=== PATIENT | female | born 1940 | race Caucasian/White ===

== ENCOUNTER → 2016-12-17 | Outpatient (CLI) | payer OTHER, BC | LOC: BHFA 14:00 | PROVIDERS: ATTEND Internal Medicine Cardiovascular Disease | DX: I42.9 Cardiomyopathy, unspecified (principal); Z92.21 Personal history of antineoplastic chemotherapy ==

== ENCOUNTER → 2017-01-08 | Outpatient (CLI) | payer OTHER, BC | LOC: BHFA 14:00 | PROVIDERS: ATTEND Internal Medicine Cardiovascular Disease | DX: Z51.11 Encounter for antineoplastic chemotherapy (principal) ==

== ENCOUNTER → 2017-04-24 | Outpatient (CLI) | payer OTHER | LOC: CIMAGING 14:07 | PROVIDERS: ATTEND Family Medicine | DX: Z12.31 Encounter for screening mammogram for malignant neoplasm of breast (principal); Z85.3 Personal history of malignant neoplasm of breast | CPT/HCPCS: G0202 ==

== ENCOUNTER 2017-05-05 07:38 | Emergency (ER) | payer OTHER ==
[2017-05-05 07:49] VITALS: BP 137/98; PULSE 87; RESP 16; TEMP 97.5; O2SAT 96
--- NOTE | 2017-05-05 08:10 | EDPHY ---
H & P Time Seen by Provider: 05/05/17 07:51 HPI/ROS: This patient complains of burning throat and mouth as well as very dry feeling in her mouth. She is concerned about potential thrush. Her mouth throat symptoms been present for 1 week and have worsened over the past couple days. She reports that she has been on antibiotics for 28 days for chronic urinary tract infection that is growing Klebsiella pneumonia on cultures. She initially was treated by her primary care physician with nitrofurantoin with failure to cure her and culture subsequently showed resistance to nitrofurantoin. She was then treated with Keflex for 1 week with relief of symptoms that recurred after her the into that treatment course. She was then placed on Keflex 500 twice daily but noted to still have Klebsiella on her cultures and in consultation with a mid-level practitioner at [facility] she was started on Keflex 500 three times daily 2 days ago. She reports no urinary symptoms while on antibiotics but reports that the symptoms seem to recur her within a day or 2 of completing antibiotic course over the past month. Prior to this past month she has not had issues with chronic UTI. The patient reports slightly higher temperature for her than usual at 98.5 over the past couple days the usual temperature of 97degrees F. ROS: Constitutional: No significant fatigue. No other constitutional complaints. HEENT: She denies any nasal congestion. No ear pain. No dysphonia. Pulmonary: She has a mild dry cough over the past couple days without other associated symptoms. No pleuritic pain or dyspnea. Cardiovascular: No chest pain GI: No nausea vomiting : Currently no dysuria, frequency urgency. No kidney flank pain. Integumentary: No skin rash 7 point ROS is otherwise negative Past Medical/Surgical History: COPD Liver cancer treated with surgery and chemotherapy with care Smoking Status: Former smoker Physical Exam: Pleasant 76-year-old female appears younger than her stated age. Vital signs are normal General Appearance: Alert, no distress. Eyes: Pupils equal and round no pallor or injection. ENT, Mouth: Mucous membranes are dry. She has mild erythema to the posterior pharynx with very subtle small papules and trace amount of white material on her tongue and posterior pharynx no dysphonia. Respiratory: Mild rale at the left base clears with deep breaths. otherwise clear to auscultation bilaterally. Cardiovascular: Regular rate and rhythm. No murmur gallop or rub Gastrointestinal: Abdomen is soft and nontender, no masses, bowel sounds normal. Neurological: GCS 15 Skin: Warm and dry, no rashes. Musculoskeletal: Neck is supple nontender. Extremities are symmetrical, full range of motion. Psychiatric: Mood and affect normal DIFFERENTIAL DIAGNOSIS: After history and physical exam differential diagnosis was considered for thrush, viral pharyngitis, strep pharyngitis, chronic Klebsiella UTI, COPD Constitutional: Initial Vital Signs Temperature (C) 36.4 C 05/05/17 07:42 Heart Rate 87 05/05/17 07:42 Respiratory Rate 16 05/05/17 07:42 Blood Pressure 137/98 H 05/05/17 07:42 O2 Sat (%) 96 05/05/17 07:42 O2 Delivery Mode Room Air Allergies/Adverse Reactions: nickel Allergy (Intermediate, Verified 05/05/17 07:51) Itching adhesive Allergy (Mild, Verified 05/05/17 07:51) Rash acetaminophen [From Tylenol] Allergy (Verified 05/05/17 07:51) Other-Enter Comments codeine [Codeine] Allergy (Verified 05/05/17 07:51) GI latex Allergy (Verified 05/05/17 07:51) Hives levofloxacin Allergy (Verified 05/05/17 07:51) varicella virus vaccine live Allergy (Verified 05/05/17 07:51) IV CONTRAST DYE Allergy (Uncoded 05/05/17 07:51) SNEEZING Home Medications: Medication Instructions Recorded Fluticasone/Salmeterol [Advair Hfa 1 inh IH BID 06/10/16 115-21 Mcg Inhaler] Herbals/Supplements -Info Only 1 ea PO DAILY 06/10/16 Ramipril [Altace] 20 mg PO DAILY 06/10/16 Tamoxifen Citrate 20 mg PO DAILY 06/14/16 CEPHALEXIN 05/05/17 Nystatin Susp [Mycostatin Oral 5 ml MM QID #200 ml 05/05/17 Liquid] Pseudoephedrine HCl 05/05/17 MDM/Departure - MDM ED Course/Re-evaluation: Discussion: Patient has probably dry mucosa in her mouth and very subtle findings may suggest early thrush. KRYSTINA prep is pending. She also has chronic UTI with Klebsiella on culture and her treatment was just increased from Keflex twice daily to three times daily with culture showing sensitivity to Keflex. She has no active UTI symptoms currently in urinalysis is pending to rule out evidence of active infection despite current Keflex treatment. Given lack of symptoms and recent change in treatment will persist with current Keflex three times daily. Will provide MD exclusion for comfort for her pharyngitis. We ruled out strep with a negative rapid strep. She will start nystatin rinse and swish if the KRYSTINA prep is positive. - Depart Disposition: Home, Routine, Self-Care Clinical Impression: Chronic UTI Pharyngitis Qualifiers: Pharyngitis/tonsillitis etiology: unspecified etiology Qualified Code(s): J02.9 - Acute pharyngitis, unspecified Condition: Good Instructions: Pharyngitis (ED) Additional Instructions: Diagnoses: 1. Pharyngitis 2. Chronic UTI Your strep test is negative. Plan: Drink plenty fluids Continue the Keflex 500 mg 3 times a day for the next week and then follow up with her urologist three-view plan MD exclusion-rinse gargle spit for pain control in your throat. Tylenol in addition if needed Your lab tests should be back today to test for thrush. If this is positive, then start the nystatin solution as prescribed. Return for any significant worsening despite treatment plan Prescriptions: Nystatin Susp [Mycostatin Oral Liquid] 5 ml MM QID #200 ml Referrals: Dina Ceja MD [Primary Care Provider] - As per Instructions
[2017-05-05 08:44] LABS: COLOR YELLOW; LEUKOCYTE ESTERASE,URINE NEGATIVE (NEGATIVE); NITRITE,URINE NEGATIVE (NEGATIVE)
== END 2017-05-05 08:59 | disposition home or self-care (01) ==
LOC: CED 07:38
DX: J02.9 Acute pharyngitis, unspecified (principal); N39.0 Urinary tract infection, site not specified
CPT/HCPCS: 81003-PO; 87880-PO

== ENCOUNTER → 2018-04-08 | Outpatient (CLI) | payer OTHER | LOC: CIMAGING 12:24 | PROVIDERS: ATTEND Surgery | DX: N63.13 Unspecified lump in the right breast, lower outer quadrant (principal); Z85.3 Personal history of malignant neoplasm of breast | CPT/HCPCS: 76641-PO ==

== ENCOUNTER → 2018-04-28 | Day surgery (SDC) | payer OTHER ==
[~2018-04-28] MED LIST: BUPIVACAINE 0.5% 30 ML SDV ONE; LIDOCAINE 1% 300 MG/30 ML SDV ONE; THROMBIN (BOVINE) 5,000 UNIT VIAL TP ONE
== END | disposition home or self-care (01) ==
LOC: FIMAGING 07:19
PROVIDERS: ATTEND Surgery
PROC: 0HBT3ZX Excision of Right Breast, Percutaneous Approach, Diagnostic (ICD-10-PCS; principal; 2018-04-28)
DX: C50.511 Malignant neoplasm of lower-outer quadrant of right female breast (principal)

== ENCOUNTER 2018-05-27 14:07 | Observation (INO) | payer OTHER ==
[2018-05-27] MEDS ORDERED: BUPIVACAINE 0.25% 30 ML SDV ONE (15:09)
[2018-05-27] MEDS ORDERED: LIDOCAINE 1% 2 ML INJ ID PRN (15:20)
[2018-05-27] MEDS ORDERED: LR 1,000 ML IV ONE (15:20)
--- NOTE | 2018-05-27 16:35 | PDHPUP ---
History & Physical Update H&P update statement: This history and physical update is based on an assessment of the patient which was completed after admission or registration (within 24 hours), but prior to the surgery/procedure. H&P update: H&P reviewed & patient examined, no change in patient's condition since H&P completed
--- NOTE | 2018-05-27 16:37 | POSTOPPROG ---
Post Op Note Date of Operation: 05/27/18 Surgeon: Jacky Arriaza Non Destructive Tester: Lynette Rose PA-C Anesthesia: GET(General Endotracheal) Procedure: Bilateral mastectomy with right SLNB Inf/Abcess present in the surg proc area at time of surgery?: No EBL: Minimal Complications: no immediate Drains: Darinel Shpiman (bilateral) Specimen(s): bilateral breasts and right sentinel lymph nodes
--- NOTE | 2018-05-27 16:50 | PDANEPAE ---
ANE History of Present Illness B mastectomy ANE Past Medical History - Cardiovascular History Hx Hypertension: Yes Hx Arrhythmias: No Hx Chest Pain: No Hx Coronary Artery / Peripheral Vascular Disease: No Hx CHF / Valvular Disease: No Hx Palpitations: No Cardiovascular History Comment: hx of cardiomyopathy. was seen by [facility] when she was on herceptin and got clearance after herceptin. hyperlipidemia - Pulmonary History Hx COPD: Yes Hx Asthma/Reactive Airway Disease: No Hx Recent Upper Respiratory Infection: No Hx Oxygen in Use at Home: Yes O2 in Use at Home (L/minute): 2l at noc Hx Sleep Apnea: No Sleep Apnea Screening Result - Last Documented: Negative Pulmonary History Comment: patient will bring portable o2 for ride home if needed - Neurologic History Hx Cerebrovascular Accident: No Hx Seizures: No Hx Dementia: No Neurologic History Comment: spinal stenosis. migraines since she was 12 yo - Endocrine History Hx Diabetes: No - Renal History Hx Renal Disorders: No - Liver History Hx Hepatic Disorders: Yes Hepatic History Comment: hx of liver ca - Neurological & Psychiatric Hx Hx Neurological and Psychiatric Disorders: No - Cancer History Hx Cancer: Yes Cancer History Comment: hx of liver, skin and breast - Congenital Disorder History Hx Congenital Disorders: No - GI History Hx Gastrointestinal Disorders: Yes Gastrointestinal History Comment: heartburn- uses tums otc. gluten intolerant - Other Health History Other Health History: hx of bone density loss- severe. wears glasses. bruises easily. - Chronic Pain History Chronic Pain: No - Surgical History Prior Surgeries: mohs surgery 2016 to left foot. 06/30/13 left breast partial mastectomy. left cataract with marley 06/18/11. luan 1976. hysterectomy 1977. breast reduction 1978. right cataract with marley 06/11/11. part of liver removed ANE Review of Systems Review of systems is: negative Review of Systems: - Exercise capacity METS (RN): 3 METS ANE Patient History - Allergies Allergies/Adverse Reactions: acetaminophen [From Tylenol] Allergy (Verified 05/26/18 14:56) LIVER CANCER HX adhesive Allergy (Verified 05/26/18 14:56) Rash codeine [Codeine] Allergy (Verified 05/26/18 14:56) GI issues gluten Allergy (Verified 05/26/18 15:12) intolerant latex Allergy (Verified 05/26/18 14:56) Hives levofloxacin Allergy (Verified 05/26/18 14:56) unable to move arm and neck, severe pain in body nickel Allergy (Verified 05/26/18 14:56) Itching varicella virus vaccine live Allergy (Verified 05/26/18 14:56) red hard lump where injection was IV CONTRAST DYE Allergy (Uncoded 05/26/18 14:56) SNEEZING - Home Medications Home medications: home medication list seen and reviewed Home Medications: Fluticasone/Salmeterol [Advair Hfa 115-21 Mcg Inhaler] BID 06/10/16 [Last Taken 05/27/18] Herbals/Supplements -Info Only 06/10/16 [Last Taken 05/26/18] Ramipril [Altace] 06/10/16 [Last Taken 05/27/18] Tamoxifen Citrate 06/14/16 [Last Taken 05/27/18] - NPO status NPO Status: no food or drink >8 hours NPO Since - Liquids (Date): 05/27/18 NPO Since - Liquids (Time): 12:30 NPO Since - Solids (Date): 05/27/18 NPO Since - Solids (Time): 05:00 - Anes Hx Anes Hx: no prior problems - Smoking Hx Smoking Status: Former smoker - Family Anes Hx Family Anes Hx: none Family Hx Anesthesia Complications: none ANE Labs/Vital Signs - Vital Signs Vital Signs: reviewed preoperatively; see RN documention for details Blood Pressure: 130/87 Heart Rate: 82 Respiratory Rate: 15 O2 Sat (%): 94 Height: 163 cm Weight: 59.8 kg ANE Physical Exam - Airway Neck exam: FROM Mallampati Score: Class 1 Mouth exam: normal dental/mouth exam - Pulmonary Pulmonary: no respiratory distress - Cardiovascular Cardiovascular: regular rate and rhythym - ASA Status ASA Status: III ANE Anesthesia Plan Anesthesia Plan: GA w LMA
[2018-05-27] MEDS ORDERED: MIDAZOLAM 2 MG/2 ML VIAL ONE (16:55)
[2018-05-27] MEDS ORDERED: MIDAZOLAM 2 MG/2 ML VIAL IVP ONE (16:58)
[2018-05-27] MEDS ORDERED: DEXAMETHASONE 4 MG/ML VIAL ONE (17:02)
[2018-05-27] MEDS ORDERED: LIDOCAINE 2% 100 MG/5 ML SYR ONE (17:02)
[2018-05-27] MEDS ORDERED: ONDANSETRON 4 MG/2 ML VIAL ONE ×2 (17:02→19:58)
[2018-05-27] MEDS ORDERED: PROPOFOL 200 MG/20 ML VIAL ONE (17:03)
[2018-05-27] MEDS ORDERED: HYDROmorphONE/DILAUDID 2 MG/ML INJ ONE (17:18)
[2018-05-27] MEDS ORDERED: EPINEPHrine 1 MG/ML INJ ONE (17:35)
[2018-05-27] MEDS ORDERED: BUPIVACAINE/EPI 0.25% 30 ML SDV ONE (18:48)
[2018-05-27] MEDS ORDERED: NALOXONE HCL 0.4 MG/ML INJ IVP PRN (18:58)
[2018-05-27] MEDS ORDERED: ALBUTEROL 3 ML DEYVIAL IH PRN (18:58)
[2018-05-27] MEDS ORDERED: HYDROmorphONE/DILAUDID 2 MG/ML INJ IVP PRN (18:58)
[2018-05-27] MEDS ORDERED: fentaNYL 100 MCG/2 ML INJ IVP PRN (18:58)
[2018-05-27] MEDS ORDERED: oxyCODONE IR 5 MG TAB PO PRN ×2 (18:58→19:14)
[2018-05-27] MEDS ORDERED: MEPERIDINE 25 MG/0.5 ML AMP IVP PRN (18:58)
[2018-05-27] MEDS ORDERED: ONDANSETRON 4 MG/2 ML VIAL IVP PRN (18:58)
[2018-05-27] MEDS ORDERED: PROMETHAZINE HCL 25 MG/ML INJ IVP PRN (18:58)
[2018-05-27] MEDS ORDERED: HYDROmorphONE/DILAUDID 1 MG/ML INJ IVP PRN (19:12)
[2018-05-27] MEDS ORDERED: ZOLPIDEM TARTRATE 5 MG TAB PO PRN (19:12)
--- NOTE | 2018-05-27 19:12 | POSTOPPROG ---
Post Op Note Date of Operation: 05/27/18 Surgeon: Jacky Arriaza Frame Trimmer: Lynette Rose PA-C Anesthesiologist: Timbo Caceres Anesthesia: GET(General Endotracheal) Pre-op Diagnosis: Multifocal right breast cancer Post-op Diagnosis: Same Procedure: Bilat simple mastectomy with right axillary SLNB Inf/Abcess present in the surg proc area at time of surgery?: No EBL: Minimal Drains: Darinel Shipman Specimen(s): bilateral breasts, right node
--- NOTE | 2018-05-28 05:42 | GOP ---
DATE OF OPERATION: 05/27/2018 SURGEON: Jacky Arriaza MD INDUCTION FURNACE OPERATOR: Lynette Rose PA-C. ANESTHESIA: General. ANESTHESIOLOGIST: Dr. Caceres. PREOPERATIVE DIAGNOSIS: Multicentric right breast carcinoma. POSTOPERATIVE DIAGNOSIS: Same PROCEDURE PERFORMED: Right simple mastectomy with axillary sentinel node biopsy , left prophylactic mastectomy. FINDINGS: See below. INDICATIONS: 77-year-old female with a significant history for hepatoma, melanoma, and 5 years status post left lumpectomy with radiation therapy. In followup imaging this year she was noted to have a multicentric new right breast carcinoma. She is undergoing surgical excision at this time without reconstruction. Risks and benefits were explained of bleeding, infection, tumor recurrence, need for additional adjuvant therapy, skin flap necrosis, arm edema, nerve injury, as well as indications for completion axillary dissection. All questions were answered. She desires to proceed. A surgical garment inspector is standard and necessary and customary for the safe performance of this procedure. DESCRIPTION OF PROCEDURE: Upon returning for lymphoscintigraphy, bilateral breasts were elliptically incised. Skin flaps were created to the level of the clavicle, sternum, inframammary fold, as well as latissimus dorsi muscle laterally. The specimens were peeled from medial to lateral and taken high up into the axillary tails of [facility]. The specimens were tagged for orientation and sent for permanent processing. The right axilla was subsequently opened. A solitary hot node measuring 2700units on the gamma counter was identified. This node was soft and pliable. No clinically suspicious lymph nodes were noted. Background activity was all less than 130 units. Satisfactory hemostasis was assured. Bilateral breasts were closed with absorbable suture over 10 flat Darinel-Shipman drains. The patient was extubated in operating room , taken to Recovery uneventfully. /[id number]/MODL MTDD
[2018-05-28 07:17] VITALS: BP 99/64
[2018-05-28] MEDS ORDERED: SALMETEROL IH SCH (09:00)
[2018-05-28] MEDS ORDERED: FLUTICASONE IH SCH (09:00)
[2018-05-28] MEDS ORDERED: TAMOXIFEN CITRATE 10 MG TAB PO SCH (09:00)
[2018-05-28] MEDS ORDERED: RAMIPRIL 5 MG CAP PO SCH (09:00)
--- NOTE | 2018-05-28 10:01 | ASMTLACE ---
LACE Length of stay for Answers: Less than 1 day current admission Comorbidities - select Answers: Chronic pulmonary disease all that apply Other Notes: HTN; Hx of cancer # of Emergency department Answers: 0 visits in the last 6 months Score: 3 Date Signed: 05/28/2018 10:00 AM Electronically Signed By:Jeri Guzmán RN
--- NOTE | 2018-05-28 10:11 | ASMTCMCOM ---
CM Note CM Note Notes: Medically cleared per surgery for discharge today. No needs identified. CM available for needs. Plan: Dc to home. Date Signed: 05/28/2018 10:11 AM Electronically Signed By:Jeri Guzmán RN
--- NOTE | 2018-05-28 10:58 | CPEKG ---
Test Reason : OPEN Blood Pressure : / mmHG Vent. Rate : 086 BPM Atrial Rate : 086 BPM P-R Int : 160 ms QRS Dur : 096 ms QT Int : 389 ms P-R-T Axes : -29 080 026 degrees QTc Int : 466 ms Sinus rhythm Ventricular premature complex Low voltage, extremity leads Confirmed by Terry Donaldson ([id number]) on 05/28/2018 10:58:29 AM Referred By: Confirmed By:Terry Donaldson
--- NOTE | 2018-05-28 11:50 | SOAPPROG ---
SOAP Progress Note Assessment/Plan: Assessment/Plan: Doing very well s/p bilateral mastectomy with right axillary SLNB. Pain well managed. No wound concerns. She will discharge to home today. Prescription for tramadol provided. She is to resume her home medications. Will follow up in office in 2 weeks. Discharge instructions and wound care explained to patient and her daughter. 05/28/18 13:09 Subjective: POD #1 s/p bilateral mastectomy with right axillary sentinel lymph node biopsy. No wound concerns. No pain. Minimal swelling. No shortness of breath or chest pain. Objective: Vital Signs Temp Pulse Resp BP Pulse Ox 36.5 C 80 14 99/64 L 98 05/28/18 07:16 05/28/18 07:16 05/28/18 07:16 05/28/18 08:51 05/28/18 07:16 05/27/18 05/28/18 05/29/18 05:59 05:59 05:59 Intake Total 1590 Output Total 290 45 Balance 1300 -45 Physical Exam: Gen: A&O x3, appears comfortable, afebrile HEENT: normal, wearing nasal cannula Skin: normal Heart: RRR Lungs: CTA bilateral Abdomen: soft, nondistended, nontender Breast: bilateral mastectomy incisions clean without erythema. Bilateral MO drains with serosanguineous drainage, ~100cc drained overnight, drain sites without erythema Extremities: no edema, unremarkable ICD10 Worksheet Patient Problems: Problems Problem Status Onset Cystitis Acute Hypoxia Acute Right upper lobe pneumonia Acute
== END 2018-05-28 09:48 | disposition home or self-care (01) ==
LOC: F3E 14:07 → F1N 15:25
PROVIDERS: ADMIT Surgery; ATTEND Surgery
PROC: 07B50ZX Excision of Right Axillary Lymphatic, Open Approach, Diagnostic (ICD-10-PCS; principal; 2018-05-27 16:30)
PROC: 0HTV0ZZ Resection of Bilateral Breast, Open Approach (ICD-10-PCS; principal; 2018-05-27 16:30)
PROC: 3E0W3HZ Introduction of Radioactive Substance into Lymphatics, Percutaneous Approach (ICD-10-PCS; principal; 2018-05-27 16:30)
DX: C50.911 Malignant neoplasm of unspecified site of right female breast (principal); Z40.01 Encounter for prophylactic removal of breast; I10 Essential (primary) hypertension; E78.5 Hyperlipidemia, unspecified; I42.9 Cardiomyopathy, unspecified; G43.909 Migraine, unspecified, not intractable, without status migrainosus; Z85.3 Personal history of malignant neoplasm of breast; Z85.05 Personal history of malignant neoplasm of liver; Z92.21 Personal history of antineoplastic chemotherapy; Z85.820 Personal history of malignant melanoma of skin; Z87.891 Personal history of nicotine dependence; Z91.040 Latex allergy status; Z91.041 Radiographic dye allergy status
CPT/HCPCS: 19303; 38500; 38792; 93005; A9520; J0171; J1100; J1170; J2001; J2250; J2405; J2704